=== PATIENT | female | born 1995 | race American Indian/Alaskan Native ===

== ENCOUNTER 2021-07-31 12:20 | Emergency (ER) | payer SELFPAY | END 2021-07-31 16:30 | LOC: EDBD → ED 12:20 | DX: R51.9 Headache, unspecified (principal); M54.2 Cervicalgia; Z53.21 Procedure and treatment not carried out due to patient leaving prior to being seen by health care provider ==

== ENCOUNTER 2022-06-30 19:21 | Emergency (ER) | payer MEDICAID ==
[2022-06-30 20:26] VITALS: BP 100/68
== END 2022-07-02 12:29 | disposition left against medical advice (07) ==
LOC: ED 19:21
DX: R11.10 Vomiting, unspecified (principal); R19.7 Diarrhea, unspecified; R51.9 Headache, unspecified; Z53.21 Procedure and treatment not carried out due to patient leaving prior to being seen by health care provider